=== PATIENT | male | born 1960 | race Caucasian/White ===

== ENCOUNTER → 2019-08-28 | Outpatient (CLI) | payer MEDICARE ==
[~2019-08-28] MED LIST: ACET500T64 PO; ALPR0.25 PO; AMLO2.5T5 PO; ASPI-496 PO; ASPI81TA45 PO; ATOR-2 PO; ATOR80TA PO; GABA300C10 PO; HYDR-3237 PO; ISOS10TA6 PO; ISOS30TA8 PO; LISI5TAB7 PO; MULT-516 PO; RANO500T2 PO; TICA90TA PO; TRAM50TA2 PO
== END | disposition home or self-care (01) ==
LOC: CFH 09:06
PROVIDERS: ATTEND Physician Assistant Surgical
DX: M71.22 Synovial cyst of popliteal space [Baker], left knee (principal); M71.21 Synovial cyst of popliteal space [Baker], right knee
CPT/HCPCS: 93970

== ENCOUNTER → 2020-02-21 | Outpatient (CLI) | payer MEDICARE, OTHER ==
[~2020-02-21] MED LIST changes: +BUPR-173 PO; +CITA10TA8 PO; +FAMO20TA7 PO; +LIPOSOMAL VIT C PO; +MELO15TA24 PO; +OXYB5TAB10 PO; +VERA120T13 PO; +ZONI100C29 PO
[2020-02-21 10:57] LABS: MICROSCOPIC NOT IND
[2020-02-21 11:00] LABS: BASOPHILS % (AUTO) 1 % (0-1); EOSINOPHILS % (AUTO) 1 % (1-7); LYMPHOCYTES % (AUTO) 23 % (22-44); MEAN CORPUSCULAR HEMOGLOBIN 35.3 pg (27.5-34.5); MEAN PLATELET VOLUME 7.3 fL (7.4-10.4); MONOCYTES % (AUTO) 10 % (2-9); NEUTROPHILS % (AUTO) 65 % (42-75); PLATELET COUNT 240 x10^3/uL (130-400); RED BLOOD COUNT 3.96 x10^6/uL (4.38-5.82); RED CELL DISTRIBUTION WIDTH 12.1 % (9.4-14.8)
[2020-02-21 11:01] LABS: INTERNATIONAL NORMALIZED RATIO 0.92 (0.93-1.1); PROTHROMBIN TIME 9.8 Seconds (9.6-11.5)
[2020-02-21 11:04] LABS: ALANINE AMINOTRANSFERASE 39 U/L (12-78); ALBUMIN 3.9 g/dL (3.4-5.0); ANION GAP 5 mmol/L (5-15); CHLORIDE 107 mmol/L (98-107)
[2020-02-21 11:05] LABS: ALKALINE PHOSPHATASE 68 U/L (45-117); BILIRUBIN,TOTAL 0.9 mg/dL (0.2-1.0); TOTAL PROTEIN 7.5 g/dL (6.4-8.2)
[2020-02-21 11:06] LABS: MD NO
== END | disposition home or self-care (01) ==
LOC: STAR 08:42
PROVIDERS: ATTEND Orthopaedic Surgery
DX: Z01.818 Encounter for other preprocedural examination (principal); M43.02 Spondylolysis, cervical region; M54.2 Cervicalgia; R00.1 Bradycardia, unspecified; Z20.828 Contact with and (suspected) exposure to other viral communicable diseases
CPT/HCPCS: 36415; 71046; 80053; 81003; 85025; 85610; 85730; 87635; 93005

== ENCOUNTER 2020-02-26 09:44 | Day surgery (SDC) | payer MEDICARE, OTHER ==
[~2020-02-26] VITALS: Ht 182.9 cm; Wt 85.0 kg
[2020-02-26] MEDS ORDERED: CEFAZOLIN PMX 1GM/50ML 50 ML ONE (10:48)
[2020-02-26] MEDS ORDERED: CHLORHEXIDINE 15 ML UDC ONE (10:48)
[2020-02-26] MEDS ORDERED: CHLORHEXIDINE 15 ML UDC MM ONE (11:00)
[2020-02-26] MEDS ORDERED: LACTATED RINGERS 1,000 ML IV SCH (11:00)
[2020-02-26] MEDS ORDERED: CEFAZOLIN 1,000 MG in SODIUM CHLORIDE 0.9% 50 ML IV SCH (11:00)
[2020-02-26] MEDS ORDERED: OXYcodone 5 MG/5 ML ORAL.SOL UDC PO PRN (12:00)
[2020-02-26] MEDS ORDERED: PROMETHAZINE 25 MG/ML, 1ML IVPush PRN (12:00)
[2020-02-26] MEDS ORDERED: HYDROcodone/APAP 7.5-325MG/15ML UDC PO PRN (12:00)
[2020-02-26] MEDS ORDERED: FENTANYL PF 100 MCG/2ML IV PRN (12:00)
[2020-02-26] MEDS ORDERED: MEPERIDINE/PF 25MG/0.5ML IVPush PRN (12:00)
[2020-02-26] MEDS ORDERED: HYDROmorphone 1 MG/ML, 1ML INJ IVPush PRN (12:00)
[2020-02-26] MEDS ORDERED: MIDAZOLAM 1 MG/ML, 2ML ONE (12:52)
[2020-02-26] MEDS ORDERED: FENTANYL PF 100 MCG/2ML ONE ×2 (12:55→15:16)
[2020-02-26] MEDS ORDERED: PROPOFOL 50 ML ONE ×5 (12:56→17:34)
[2020-02-26] MEDS ORDERED: EPINEPHRINE 1 MG/ML, 1ML ONE (14:06)
[2020-02-26] MEDS ORDERED: BACITRACIN 50,000 UNIT ONE (14:06)
[2020-02-26] MEDS ORDERED: BUPIVACAINE/PF 0.5% ONE (14:06)
[2020-02-26] MEDS ORDERED: THROMBIN 5,000 UNIT VIAL TP ONE (14:06)
[2020-02-26] MEDS ORDERED: DEXAMETHASONE 4 MG/ML, 1ML ONE (14:22)
[2020-02-26] MEDS ORDERED: SUCCINYLCHOLINE 20 MG/ML, 10ML ONE (14:22)
[2020-02-26] MEDS ORDERED: ROCURONIUM 10MG/ML,5ML ONE (14:22)
[2020-02-26] MEDS ORDERED: CEFAZOLIN 1,000 MG ONE (14:22)
[2020-02-26] MEDS ORDERED: ONDANSETRON 2MG/ML, 2ML ONE (14:22)
[2020-02-26] MEDS ORDERED: GLYCOPYRROLATE 0.2MG/1ML, 5ML ONE (14:22)
[2020-02-26] MEDS ORDERED: NEOSTIGMINE 1 MG/ML, 10ML ONE (14:22)
[2020-02-26] MEDS ORDERED: PROPOFOL 10 MG/ML, 20ML ONE (14:22)
[2020-02-26] MEDS ORDERED: FENTANYL PF 250 MCG/5ML ONE (18:37)
[2020-02-26] MEDS ORDERED: ATORVASTATIN 80 MG TABLET PO SCH (21:22)
[2020-02-26] MEDS ORDERED: ACETAMINOPHEN 650 MG SUPP PR PRN (21:30)
[2020-02-26] MEDS ORDERED: HYDROmorphone 2 MG/ML, 1ML IVPush PRN (21:30)
[2020-02-26] MEDS ORDERED: PROMETHAZINE 25 MG/ML, 1ML IM PRN (21:30)
[2020-02-26] MEDS ORDERED: ACETAMINOPHEN 500 MG TABLET PO PRN (21:30)
[2020-02-26] MEDS ORDERED: NS + 20MEQ KCL 1,000 ML IV SCH (21:30)
[2020-02-26] MEDS ORDERED: SODIUM CHLORIDE 0.9% 1,000ML IV PRN (21:30)
[2020-02-26] MEDS ORDERED: MAGNESIUM HYDROXIDE 8%, 30ML UDC PO PRN (21:30)
[2020-02-26] MEDS ORDERED: BISACODYL 10 MG SUPP PR PRN (21:30)
[2020-02-26] MEDS ORDERED: DIAZEPAM 5 MG/ML, 2ML IV PRN (21:30)
[2020-02-26] MEDS ORDERED: ONDANSETRON 2MG/ML, 2ML IV PRN (21:30)
[2020-02-26] MEDS ORDERED: LABETALOL 5MG/ML, 20ML IV PRN (21:30)
[2020-02-26] MEDS: CEFAZOLIN PMX 1GM/50ML 50 ML IVPB SCH (22:02)
[2020-02-26] MEDS: DEXAMETHASONE 4 MG/ML, 1ML IV SCH (22:02)
[2020-02-26] MEDS: DIAZEPAM 5 MG TABLET PO PRN (22:14)
[2020-02-27] MEDS: OXYcodone IR 5MG TABLET PO PRN ×5 (02:52→16:22)
[2020-02-27 03:47] VITALS: BP 117/73
[2020-02-27] MEDS: CEFAZOLIN PMX 1GM/50ML 50 ML IVPB SCH (05:28)
[2020-02-27] MEDS: DIAZEPAM 5 MG TABLET PO PRN (05:28)
[2020-02-27 06:12] LABS: BASOPHILS % (AUTO) 0 % (0-1); EOSINOPHILS % (AUTO) 0 % (1-7); LYMPHOCYTES % (AUTO) 4 % (22-44); MEAN CORPUSCULAR HEMOGLOBIN 35.2 pg (27.5-34.5); MEAN CORPUSCULAR HGB CONC 34.3 g/dL (33.2-36.2); MEAN PLATELET VOLUME 7.2 fL (7.4-10.4); MONOCYTES % (AUTO) 3 % (2-9); NEUTROPHILS % (AUTO) 93 % (42-75); PLATELET COUNT 237 x10^3/uL (130-400); RED BLOOD COUNT 3.88 x10^6/uL (4.38-5.82)
[2020-02-27 06:16] LABS: CHLORIDE 110 mmol/L (98-107)
[2020-02-27 06:20] LABS: ANION GAP 6 mmol/L (5-15); CALCIUM 8.5 mg/dL (8.5-10.1); CREATININE 0.87 mg/dL (0.7-1.3)
[2020-02-27 06:22] LABS: MD NO
[2020-02-27] MEDS: DEXAMETHASONE 4 MG/ML, 1ML IV SCH ×2 (06:30→14:51)
[2020-02-27 07:28] VITALS: BP 129/77
[2020-02-27] MEDS ORDERED: CITALOPRAM 10 MG TABLET PO SCH ×2 (09:00)
[2020-02-27] MEDS ORDERED: ISOSORBIDE MONONITRATE ER 30 MG TABLET PO SCH (09:00)
[2020-02-27] MEDS ORDERED: SENNA/DOCUSATE TABLET PO SCH (09:00)
[2020-02-27] MEDS ORDERED: GABAPENTIN 400 MG CAPSULE PO SCH (09:00)
[2020-02-27] MEDS ORDERED: OXYBUTYNIN CHLORIDE 5 MG TABLET PO SCH (09:00)
[2020-02-27] MEDS ORDERED: MULTIVITAMIN 1 TABLET PO SCH (09:00)
[2020-02-27 13:24] VITALS: BP 127/78
[2020-02-27] MEDS ORDERED: DIAZ5TAB4 PO (15:38)
[2020-02-27] MEDS ORDERED: OXYC5CAP2 PO (15:38)
[2020-02-27] MEDS ORDERED: SENN1TAB94 PO (15:39)
[2020-02-27] MEDS ORDERED: ONDA4TAB7 PO (15:40)
[2020-02-27] MEDS ORDERED: METH2TAB PO (15:40)
[2020-02-27 16:11] VITALS: BP 113/85
[2020-02-27] MEDS ORDERED: CITALOPRAM 20 MG TABLET PO SCH (21:00)
[2020-02-28] MEDS ORDERED: ENOXAPARIN 40 MG/0.4 ML SQ SCH (06:00)
== END 2020-02-27 17:21 | disposition home or self-care (01) ==
LOC: OUT 09:44 → 4NE 20:50 → OUT 22:47 → 4NE 22:48 → UNDOADMIN 22:48 → OUT 02-27 17:21 → UNDODISIN 02-27 17:21
PROVIDERS: ATTEND Orthopaedic Surgery
DX: M48.02 Spinal stenosis, cervical region (principal); M47.12 Other spondylosis with myelopathy, cervical region; M47.22 Other spondylosis with radiculopathy, cervical region; M25.78 Osteophyte, vertebrae; I10 Essential (primary) hypertension; I25.10 Atherosclerotic heart disease of native coronary artery without angina pectoris; I25.2 Old myocardial infarction; M06.9 Rheumatoid arthritis, unspecified; Z79.1 Long term (current) use of non-steroidal anti-inflammatories (NSAID); Z79.899 Other long term (current) drug therapy; Z95.5 Presence of coronary angioplasty implant and graft; Z82.49 Family history of ischemic heart disease and other diseases of the circulatory system
CPT/HCPCS: 20931; 20936; 22551; 22552; 22846; 36415; 72040; 80048; 85025; 86850; 86900; 95938; 95941; 97161; 97165; C1713; C1762; J0171; J0330; J0690; J1100; J2250; J2405; J2704; J2710; J3010; J3480; J7120; G0378

== ENCOUNTER 2020-12-16 12:05 | Outpatient (CLI) | payer MEDICARE ==
[~2020-12-16 12:05] MED LIST changes: +DIAZ5TAB4 PO; +METH2TAB PO; +ONDA4TAB7 PO; +OXYC5CAP2 PO; +SENN1TAB94 PO
[2020-12-16] MEDS ORDERED: REGADENOSON 0.4 MG/5 ML SYRINGE ONE ×3 (13:39→15:31)
== END 2020-12-16 23:59 | disposition home or self-care (01) ==
LOC: CFH 12:05
PROVIDERS: ATTEND Internal Medicine Cardiovascular Disease
DX: Z01.810 Encounter for preprocedural cardiovascular examination (principal); I25.9 Chronic ischemic heart disease, unspecified; I25.10 Atherosclerotic heart disease of native coronary artery without angina pectoris
CPT/HCPCS: 78452; 93017; A9502; J2785